=== PATIENT | male | born 1955 | race Caucasian/White ===

== ENCOUNTER 2017-11-03 05:07 | Outpatient (CLI) | payer BC | END 2017-11-03 23:59 | disposition home or self-care (01) | LOC: DIABETIC 05:07 | PROVIDERS: ATTEND Surgery | DX: E66.01 Morbid (severe) obesity due to excess calories (principal); I10 Essential (primary) hypertension; G47.30 Sleep apnea, unspecified | CPT/HCPCS: G0108 ==

== ENCOUNTER 2017-12-01 05:06 | Outpatient (CLI) | payer BC | END 2017-12-01 23:59 | disposition home or self-care (01) | LOC: DIABETIC 05:06 | PROVIDERS: ATTEND Surgery | DX: E66.1 Drug-induced obesity (principal); I10 Essential (primary) hypertension; G47.30 Sleep apnea, unspecified | CPT/HCPCS: 97802 ==

== ENCOUNTER 2017-12-08 04:54 | Outpatient (CLI) | payer BC | END 2017-12-08 23:59 | disposition home or self-care (01) | LOC: DIABETIC 04:54 | PROVIDERS: ATTEND Surgery | DX: E66.01 Morbid (severe) obesity due to excess calories (principal); I10 Essential (primary) hypertension; G47.30 Sleep apnea, unspecified | CPT/HCPCS: 97802 ==

== ENCOUNTER 2019-04-20 05:32 | Inpatient (IN) | payer BC ==
[2019-04-13 15:54] LABS: BASOPHILS % (AUTO) 0.6 % (0-1); EOSINOPHILS # (AUTO) 0.2 X10'3 (0-0.9); EOSINOPHILS % (AUTO) 1.8 % (0-6); LYMPHOCYTES # (AUTO) 3.6 X10'3 (1.1-4.8); MEAN CORPUSCULAR HEMOGLOBIN 29.9 PG (27.0-31.0); MEAN CORPUSCULAR HGB CONC 32.8 g/dL (33.0-36.5); MEAN CORPUSCULAR VOLUME 91.1 FL (78-98); MEAN PLATELET VOLUME 8.2 FL (7.4-10.4); MONOCYTES # (AUTO) 0.7 X10'3 (0-0.9); MONOCYTES % (AUTO) 8.6 % (2-12); NEUTROPHILS # (AUTO) 3.9 X10'3 (1.8-7.7); PRE OP HEMATOCRIT 42.8 % (42.0-52.0); PRE OP PLATELET COUNT 206 X10'3 (140-440); RED BLOOD COUNT 4.69 X10'6 (4.70-6.10); RED CELL DISTRIBUTION WIDTH 13.8 % (11.5-14.5)
[2019-04-13 15:58] LABS: ALBUMIN 3.6 G/DL (3.4-5.0); ALBUMIN/GLOBULIN RATIO 1.1 (1.1-1.5); ALKALINE PHOSPHATASE 61 IU/L (46-116); BLOOD UREA NITROGEN 16 MG/DL (7-18); BUN/CREATININE RATIO 20.3 (5.4-32.0); CALCIUM 9.2 MG/DL (8.5-10.1); CHLORIDE 107 MMOL/L (99-107); CREATININE 0.79 MG/DL (0.60-1.10); PRE OP ALT 28 U/L (30-65); PRE OP ANION GAP 6 (8-16); PRE OP AST 12 U/L (10-37); PRE OP BILIRUB, TOTAL 1.4 MG/DL (0.0-1.0); PRE OP GLUCOSE 93 MG/DL (70-104); PRE OP POTASSIUM 3.9 MMOL/L (3.4-5.1); PRE OP SODIUM 143 MMOL/L (135-145); TOTAL CARBON DIOXIDE 30.2 MMOL/L (24-32); TOTAL PROTEIN 6.9 G/DL (6.4-8.2); eGFR > 90 ML/MIN
[~2019-04-20] VITALS: Ht 177.8 cm; Wt 109.7 kg
[2019-04-20] VITALS (18 sets, daily range): BP systolic 94–130; BP diastolic 55–80
[~2019-04-20 05:32] MED LIST: ATOR20TA PO; BARIATRIC FUSION VIT PO; CALC300T4 PO; DOCUMENT DATE & TIME OF BETA-BLOCKER PO ONE; METO-539 PO; RAMI5CAP65 PO; TRAM50TA2 PO; acetaminophen 325mg tablet PO ONE; cefazolin/dext.iso 2gm/100 ML IV ONE; celeCOXIB 100mg capsule PO ONE; famotidine 20mg tablet PO ONE; gabapentin 300mg capsule PO ONE; metoclopramide 5 mg/ml inj IV ONE; oxyCODONE SR 10mg (sust. release) tab -2 tabs (20mg) PO ONE; ringers solution, lacted 1,000 ML IV SCH; tranexamic acid inj. 1,000 MG in normal saline 100 ML IV ONE; vancomycin inj 1,500 MG in normal saline 300ml IV soln IV ONE
[2019-04-20] MEDS ORDERED: LIDOcaine 1% (10mg/ml) 2ml vial ONE (05:57)
[2019-04-20] MEDS ORDERED: epiNEPHrine 1 mg/ml inj ONE (06:11)
[2019-04-20] MEDS ORDERED: vancomycin 1,000mg inj ONE (06:11)
[2019-04-20] MEDS ORDERED: ketorolac trometh. 30mg/ml inj. ONE (06:11)
[2019-04-20] MEDS ORDERED: ROPIVAcaine 0.5% (5mg/ml) 30ml vial ONE (06:11)
[2019-04-20] MEDS ORDERED: acetaminophen 325mg tablet PO PRN (06:45)
[2019-04-20] MEDS ORDERED: HYDROmorphone 1 mg/ml syringe IV PRN (06:45)
[2019-04-20] MEDS ORDERED: magnesium hydroxide 30ml (MOM) UD suspension PO PRN (06:45)
[2019-04-20] MEDS ORDERED: HYDROcodone/acetaminophen 10/325mg tab PO PRN (06:45)
[2019-04-20] MEDS ORDERED: bisacodyl 10mg suppository rectal RC PRN (06:45)
[2019-04-20] MEDS ORDERED: HYDROmorphone inj. 0.5 MG/0.5 ML DISP.SYRIN IV PRN (06:45)
[2019-04-20] MEDS ORDERED: diphenhydrAMINE 25mg capsule PO PRN ×2 (06:45)
[2019-04-20] MEDS ORDERED: ondansetron/PF 4mg/2ml inj IV PRN ×2 (06:45→07:40)
[2019-04-20] MEDS ORDERED: tetracaine 1% (10mg/ml) pres. free inj. ONE (06:46)
[2019-04-20] MEDS ORDERED: MIDAZolam 1mg/ml 10ml vial ONE (06:48)
[2019-04-20] MEDS ORDERED: fentaNYL/PF 50MCG/1 ML 2ML syringe ONE (06:48)
[2019-04-20] MEDS ORDERED: propofol inj 20 ML IV ONE (07:05)
[2019-04-20] MEDS ORDERED: cloNIDine hcl/PF 100mcg/ml inj ONE (07:16)
[2019-04-20] MEDS ORDERED: ringers solution, lacted 1,000 ML IV SCH (07:37)
[2019-04-20] MEDS ORDERED: morphine 4 MG/ML inj SYRINge IV PRN ×2 (07:40)
[2019-04-20] MEDS ORDERED: meperidine/PF 25mg/ml syringe IV PRN ×3 (07:40)
[2019-04-20] MEDS ORDERED: proCHLORperazine 10 MG/2 ml inj IV PRN (07:40)
[2019-04-20] MEDS ORDERED: ePHEDrine 50MG/ML INJ. ONE (07:49)
[2019-04-20] MEDS: gabapentin 300mg capsule PO SCH ×3 (08:00→20:22)
[2019-04-20] MEDS: lisinopril 10 MG tablet PO SCH (08:00)
[2019-04-20] MEDS: multivitamins, therapeutics tablet PO SCH (08:00)
[2019-04-20] MEDS: metoprolol succinate 25mg (24-HOUR) SR. Tablet PO SCH (08:00)
[2019-04-20] MEDS: enoxaparin 40mg/0.4ml syringe SQ SCH (08:00)
[2019-04-20] MEDS: ascorbic acid 500mg tablet PO SCH ×2 (08:00→20:22)
--- NOTE | 2019-04-20 08:20 | NUR ---
Received from OR via BED, accompanied by Anesthesiologist DR EDWARDS-- and report given by Anesthesiolgist. PATIENT A&OX4, DENIES PAIN, V/S WNL, NEUROVASCULAR CHECKS INTACT, 18G PIV RUE, SCD ON, ASHANTI DRESSING TO RIGHT HIP CDI, F/C DRAINING CLEAR YELLOW URINE
--- NOTE | 2019-04-20 09:00 | NUR ---
Received report from Camilo in recovery
--- NOTE | 2019-04-20 09:20 | NUR ---
PATIENT A&OX4, DENIES PAIN, V/S WNL, NEUROVASCULAR CHECKS INTACT, 18G PIV RUE, SCD ON, ASHANTI DRESSING TO RIGHT HIP CDI, F/C DRAINING CLEAR YELLOW URINE, SENSATIONS AT T12
--- NOTE | 2019-04-20 11:10 | NUR ---
RECEIVED REPORT, ASSUMED CARE OF PATIENT FROM BECCA ACUÑA
[2019-04-20] MEDS: potassium cl 20mEq in 1/2 NS 1,000 ML IV SCH ×2 (12:06→15:00)
[2019-04-20] MEDS ORDERED: tranexamic acid inj. 1,090 MG in normal saline 100ml IV soln 100 ML IV ONE (12:30)
[2019-04-20] MEDS: cefazolin/dext.iso 2gm/100ml 100 ML IV SCH (16:10)
--- NOTE | 2019-04-20 18:12 | NUR ---
REPORT TO CHRISTAL ACUÑA
--- NOTE | 2019-04-20 18:16 | NUR ---
REPORT REC'D FROM DOMENICO RAMOS.
[2019-04-20] MEDS ORDERED: atorvastatin 20mg tablet PO SCH (21:00)
[2019-04-20] MEDS ORDERED: sennosides 8.6mg tablet PO SCH (21:00)
[2019-04-21] MEDS: cefazolin/dext.iso 2gm/100ml 100 ML IV SCH ×2 (00:28→08:00)
[2019-04-21] MEDS: potassium cl 20mEq in 1/2 NS 1,000 ML IV SCH ×2 (01:53→08:16)
[2019-04-21 02:00] VITALS: BP 108/68
[2019-04-21] MEDS: HYDROcodone/acetaminophen 10/325mg tab PO PRN ×2 (05:26→14:27)
[2019-04-21 05:32] LABS: BASOPHILS % (AUTO) 0.4 % (0-1); EOSINOPHILS # (AUTO) 0.2 X10'3 (0-0.9); EOSINOPHILS % (AUTO) 2.5 % (0-6); HEMATOCRIT 36.8 % (42.0-52.0); HEMOGLOBIN 12.2 g/dl (14.0-17.9); LYMPHOCYTES # (AUTO) 2.3 X10'3 (1.1-4.8); LYMPHOCYTES % (AUTO) 34.8 % (21-51); MEAN CORPUSCULAR HEMOGLOBIN 30.5 PG (27.0-31.0); MEAN CORPUSCULAR HGB CONC 33.2 g/dL (33.0-36.5); MEAN CORPUSCULAR VOLUME 91.9 FL (78-98); MEAN PLATELET VOLUME 8.5 FL (7.4-10.4); MONOCYTES # (AUTO) 0.8 X10'3 (0-0.9); MONOCYTES % (AUTO) 11.3 % (2-12); NEUTROPHILS # (AUTO) 3.4 X10'3 (1.8-7.7); PLATELET COUNT 157 X10'3 (140-440); RED CELL DISTRIBUTION WIDTH 13.7 % (11.5-14.5); WHITE BLOOD COUNT 6.7 X10'3 (4.5-11.0)
[2019-04-21 05:34] LABS: ANION GAP 6 (8-16); CHLORIDE 104 MMOL/L (99-107); POTASSIUM 4.5 MMOL/L (3.5-5.1); SODIUM 136 MMOL/L (135-145); TOTAL CARBON DIOXIDE 25.7 MMOL/L (24-32)
--- NOTE | 2019-04-21 05:36 | NUR ---
[facility] DC'D PER PROTOCOL WITH NO INCIDENT; PT TOLERATED WELL.
[2019-04-21 06:00] VITALS: BP 118/62
--- NOTE | 2019-04-21 06:14 | NUR ---
REPORT GIVEN TO DOMENICO RAMOS.
[2019-04-21] MEDS: lisinopril 10 MG tablet PO SCH (08:00)
[2019-04-21] MEDS: metoprolol succinate 25mg (24-HOUR) SR. Tablet PO SCH (08:00)
[2019-04-21] MEDS: gabapentin 300mg capsule PO SCH ×2 (08:23→14:27)
[2019-04-21] MEDS: ascorbic acid 500mg tablet PO SCH (08:23)
[2019-04-21] MEDS: multivitamins, therapeutics tablet PO SCH (08:23)
[2019-04-21] MEDS: enoxaparin 40mg/0.4ml syringe SQ SCH (08:24)
[2019-04-21 10:00] VITALS: BP 122/69
--- NOTE | 2019-04-21 10:21 | NUR ---
Joint replacement consult: Pt seen by SERGIO for written/verbal high protein ed. RD reviewed high protein needs for wound healing, immune strength, high protein foods, and protein supplementation options. RD contact information provided in case of further questions. Pt agrees to double proteins w/ meals; dietary notified. Addendum: 04/21/19 at [address] Amended: Links added.
== END 2019-04-21 14:30 | disposition home or self-care (01) | DRG 470 ==
LOC: PAS IN 05:32 → EDSTATUS 07:30 → ORTHO 4S 09:20
PROVIDERS: ADMIT Orthopaedic Surgery; ATTEND Orthopaedic Surgery
PROC: 5A09357 Assistance with Respiratory Ventilation, Less than 24 Consecutive Hours, Continuous Positive Airway Pressure (ICD-10-PCS; 2019-04-20)
PROC: 0SR906Z Replacement of Right Hip Joint with Oxidized Zirconium on Polyethylene Synthetic Substitute, Open Approach (ICD-10-PCS; principal; 2019-04-20 06:42)
PROC: 5A09357 Assistance with Respiratory Ventilation, Less than 24 Consecutive Hours, Continuous Positive Airway Pressure (ICD-10-PCS; 2019-04-21)
DX: M16.11 Unilateral primary osteoarthritis, right hip (principal); D62 Acute posthemorrhagic anemia; E78.5 Hyperlipidemia, unspecified; G47.30 Sleep apnea, unspecified; K21.9 Gastro-esophageal reflux disease without esophagitis; I25.10 Atherosclerotic heart disease of native coronary artery without angina pectoris; Z95.5 Presence of coronary angioplasty implant and graft; Z87.891 Personal history of nicotine dependence; Z79.899 Other long term (current) drug therapy
CPT/HCPCS: Z7506; Z7508; 36415; 71046; 72170; 80051; 80053; 82948; 85025; 86885; 86900; 86901; 87081; 97110; 97116; 97161; 97535; A4215; A4615; A7000; C1758; C1776; G0378; J0171; J0735; J1650; J1885; J2001; J2250; J2704; J2765; J2795; J3010; J3370; J3480; J7120